=== PATIENT | female | born 1975 | race Caucasian/White ===

== ENCOUNTER 2018-05-08 18:14 | Emergency (ER) | payer MEDICAID, OTHER ==
[~2018-05-08] VITALS: Ht 170.2 cm; Wt 117.9 kg
[2018-05-08] MEDS ORDERED: METH-313 PO (18:56)
--- NOTE | 2018-05-08 18:56 | ED Back Pain ---
General Chief Complaint: Back Problems Stated Complaint: BACK PAIN Nursing Triage Note: pt states that she has a history of degenerative back issues. states the pain in the lower back is the worst she has had since labor. Did fall earlier in the week but does not feel this is related. No bowel, bladder or leg involvement. patient is able to kick legs in air, bend forward and backward without issue. Nursing Sepsis Screen: No Definite Risk Source of Information: Patient Exam Limitations: No Limitations History of Present Illness Date Seen by Provider: May 08, 2018 Time Seen by Provider: 18:53 Initial Comments To ER with reports of midline low back pain that radiates down both sides in the lumbar region. This is been ongoing for about a week. She fell on the ice about a week ago and landed on the right buttock. She believes this reaggravated her degenerative disc disease and fibromyalgia. Pain does not radiate down either leg, no loss of bowel or bladder control, no fevers, no loss of sensation of her genitals. She denies any dysuria. Location: Lumbar Spine, Paraspinous Muscles Timing/Duration: 1 Week Severity: Moderate Pain/Injury Location: Back Associated Symptoms: lower back pain Allergies and Home Medications Allergies Coded Allergies: ketorolac (Unverified Allergy, Unknown, 05/08/18) latex (Unverified Allergy, Unknown, 05/08/18) Uncoded Allergies: DARVOCET (Allergy, Unknown, 05/08/18) ERYTHROMYCIN (Allergy, Unknown, 05/08/18) Patient Home Medication List Home Medication List Reviewed: Yes Review of Systems Constitutional: see HPI EENTM: see HPI Respiratory: no symptoms reported Cardiovascular: no symptoms reported Genitourinary: no symptoms reported Musculoskeletal: see HPI, back pain, muscle pain Skin: no symptoms reported Psychiatric/Neurological: No Symptoms Reported Past [id number]-[id number] Hx Patient Social History Alcohol Use: Denies Use Recreational Drug Use: No Smoking Status: Former Smoker Former Smoker, Quit: Mar 30, 2015 2nd Hand Smoke Exposure: No Recent Foreign Travel: No Contact w/Someone Who Travel: No Recent Infectious Disease Expo: No Recent Hopitalizations: No Physical Abuse: No Sexual Abuse: No Mistreated: No Fear: No Seasonal Allergies Seasonal Allergies: No Past Medical History Surgeries: Yes Section, Gallbladder, Orthopedic, Thyroidectomy Respiratory: No Cardiac: Yes Hypertension Neurological: No Genitourinary: No Gastrointestinal: Yes Gastroesophageal Reflux Musculoskeletal: Yes Fibromyalgia, Chronic Back Pain Endocrine: No HEENT: No Cancer: No Psychosocial: Yes Anxiety, Depression Integumentary: No Blood Disorders: No Adverse Reaction/Blood Tranf: No Physical Exam Vital Signs Vital Signs - First Documented 05/08/18 18:29 Temp 98.0 Pulse 80 Resp 18 B/P (MAP) 148/110 (123) Capillary Refill : Less Than 3 Seconds Height, Weight, BMI Height: 5'7.00" Weight: 260lbs. oz. 117.312906po; BMI Method:Stated General Appearance: No Apparent Distress, WD/WN HEENT: PERRL/EOMI, TMs Normal Respiratory: No Accessory Muscle Use, No Respiratory Distress Gastrointestinal: Non Tender, Soft Neurologic/Psychiatric: Alert, Oriented x3 Skin: Normal Color, Warm/Dry Progress/Results/Core Measures Results/Orders My Orders Orders - SMITA MARTINES APRN Orphenadrine Injection (Norflex Injectio (05/08/18 19:00) Vital Signs/I&O 05/08/18 18:29 Temp 98.0 Pulse 80 Resp 18 B/P (MAP) 148/110 (123) Blood Pressure Mean: 123 Departure Impression Primary Impression: Back pain Qualified Codes: M54.5 - Low back pain Disposition: 01 HOME, SELF-CARE Condition: Stable Departure-Patient Inst. Decision time for Depature: 18:55 Referrals: ANNIE GRULLON MD (PCP/Family) Primary Care Physician Patient Instructions: Low Back Pain (DC) Add. Discharge Instructions: 1. Pain persists you should follow-up with her primary care provider to discuss an MRI. In the meantime take anti-inflammatories like ibuprofen or naproxen in addition to the muscle relaxers that have been prescribed. All discharge instructions reviewed with patient and/or family. Voiced understanding. Scripts Methocarbamol (Robaxin-750) 750 Mg Tablet 750 MG PO Q4H PRN for PAIN-MODERATE TO SEVERE, #30 TAB Prov: SMITA MARTINES APRN 05/08/18 SMITA MARTINES APRN May 08, 2018 18:56
[2018-05-08] MEDS ORDERED: ORPHENADRINE 60 MG/2 ML (NORFLEX) AMP IM ONE (19:00)
[2018-05-08 19:13] VITALS: BP 143/91
--- OUTSIDE RECORDS SUMMARY | 2018-05-09 00:24 | XMS REPORT ---
Author Author DENISE MURRELL Organization [facility] Address [address] [place] [address] Care Team Providers Care Operations Liaison Name Role Phone DENISE MURRELL Unavailable PROBLEMS Type Condition ICD9-CM Code ALN40-WU Code Onset Dates Condition Status SNOMED Code Problem Fibromyalgia M79.7 Active 872341089 Problem PTSD (post-traumatic stress disorder) F43.10 Active 52161290 Problem Primary hypertension I10 Active 90853596 Problem Mood disorder F39 Active 59027723 Problem Carpal tunnel syndrome on right G56.01 Active [id number] ALLERGIES Substance Reaction Event Type Date Status Erythromycin hives Drug Allergy Dec, Active ENCOUNTERS Encounter Location Date Diagnosis [facility] [address] [id number] [address] Dec, Carpal tunnel syndrome on right G56.01 ; Fibromyalgia M79.7 ; Mood disorder F39 ; PTSD (post-traumatic stress disorder) F43.10 and Primary hypertension I10 IMMUNIZATIONS No Known Immunizations SOCIAL HISTORY Never Assessed REASON FOR VISIT Establish Care-CALVIN raza, she sign up for SSI and needs to be back on her medication PLAN OF CARE Activity Details Follow Up prn. 3 months or as indicated by lab Reason: VITAL SIGNS Height 5 ft 7 in in 2018-01-08 Temperature 98.1 degrees Fahrenheit 2018-01-08 Heart Rate 74 bpm 2018-01-08 Respiratory Rate 18 2018-01-08 Oximetry on room air:97 % 2018-01-08 Blood pressure systolic 150 mmHg 2018-01-08 Blood pressure diastolic 104 mmHg 2018-01-08 MEDICATIONS Medication Instructions Dosage Frequency Start Date End Date Duration Status Lotrel 5-20 MG Orally Once a day as directed 24h Dec, 90 days Active Prozac 40 mg Orally Once a day 1 capsule 24h Dec, 30 day(s) Active Gabapentin 800 MG Orally Three times a day 1 tablet 8h Dec, 30 day(s) Active RESULTS No Results PROCEDURES No Known procedures INSTRUCTIONS MEDICATIONS ADMINISTERED No Known Medications MEDICAL (GENERAL) HISTORY Type Description Date Medical History HTN Medical History fibermyalga Medical History PTSD Medical History herniated disc disease Medical History degenerative disc disease Surgical History galbladder removed 1997 Surgical History lower back surgery 2004 Surgical History partial thyroidectomy 2010 Hospitalization History surgeries
== END 2018-05-08 19:10 | disposition home or self-care (01) ==
LOC: ER 18:15
DX: M54.5 Low back pain (principal); I10 Essential (primary) hypertension; K21.9 Gastro-esophageal reflux disease without esophagitis; F41.9 Anxiety disorder, unspecified; F32.9 Major depressive disorder, single episode, unspecified; Z87.891 Personal history of nicotine dependence; Z91.040 Latex allergy status; Z88.6 Allergy status to analgesic agent; Z88.1 Allergy status to other antibiotic agents; Z88.8 Allergy status to other drugs, medicaments and biological substances
CPT/HCPCS: 99284